=== PATIENT | female | born 1985 | race Caucasian/White ===

== ENCOUNTER 2021-07-26 11:40 | Emergency (ER) | payer SELFPAY ==
[2021-07-26] VITALS (7 sets, daily range): BP systolic 129–203; BP diastolic 86–125; PULSE 77–103; RESP 15–20; TEMP 36.7–36.8; O2SAT 96–100; BMI 62.1
--- NOTE | 2021-07-26 11:53 | XR_ITS ---
WS: [id number] Exam: XR chest 1V portable [id number] Date/Time of Exam: 07/26/2021 11:53 AM Reason For Exam: chest pain Findings: The lungs are clear and fully expanded. Costophrenic angles are sharp. No infiltrates. Bronchovascula r relief appears normal. Cardiac silhouette is unremarkable. Bony elements are intact. XR/XR chest 1V portable [id number] IMPRESSION: Unremarkable chest radiograph.
--- NOTE | 2021-07-26 11:53 | ECG_ITS ---
[facility] Test Date: 2021-07-26 Pat Name: Sammie Amato Department: Room: Gender: Female Coordinator Volunteer Services: : 1985 Requested By: Antwan Amaya Order Number: [id number] Leah MD: Salud Neal M.D. Measurements Intervals [place] Rate: 93 P: 38 SD: 172 QRS: 19 QRSD: 97 T: 19 QT: 340 QTc: 425 Interpretive Statements SINUS RHYTHM No previous ECG available for comparison Electronically Signed On 07-27-2021 7:27:52 CDT by Salud Neal M.D. [id number]
--- NOTE | 2021-07-26 11:55 | ED_ITS ---
HPI - General Adult General: Chief complaint: Chest Pain Stated complaint: chest pain/nausea Time Seen by Provider: 07/26/21 11:52 History of Present Illness: Patient is a 36-year-old female with history of sarcoidosis on methotrexate presenting to the emergency room for concerns of c hest pain and elevated blood pressure. Patient tells me for the last 3 days, she has been taking blood pressure around AC and has noticed that her blood pressure was elevated. Earlier today in triage, patient also noticed that her blood pressure was 203/125. Patient tells me that since 5 AM this morning, she has had intermittent pressure-like chest pain lasting for 10 to 15 minutes at a time. Patient reports that the chest pressure is currently 5 out of 10. Denies any nausea/vomiting fever/chills, pleuritic chest pain, exertional chest pain, leg swelling, OCP use, recent surgery or immobilization. Patient has no family history aortic aneurysm. Patient has no known prior history of elevated blood pressure. Patient tells me that her sarcoidosis is currently being controlled on methotrexate. Onset: 3 days of hypertension, 7 hrs of chest pain Duration:ongoing Location:home Severity:moderate Associated symptoms: Reports chest pain; Deny dyspnea, nausea, rash, palpitations or vomiting Review of Systems Const: Denies: fever(s) or chills Eyes: Denies: change in vision ENMT: Denies: mouth pain Card: Reports: chest pain; Denies: palpitations Resp: Denies: dyspnea or non-productive cough GI: Denies: abdominal pain, nausea, vomiting or diarrhea : Denies: dysuria Musc: Denies: extremity pain Skin/Breast: Denies: rash or new lesions Neuro: Denies: weakness in extremities Psych: Reports: other (Normal mood) Serafin/Lymph: Denies: easy bruising Physical Exam Const: COMMON NORMALS: alert HENMT: COMMON NORMALS: atraumatic HEAD & SCALP: atraumatic MOUTH: moist mucous membranes not abnormal Eye: COMMON NORMALS: EOMs intact bilaterally and conjunctivae normal CONJUNCTIVA: Yes conjunctivae normal Neck/C-Spine: COMMON NORMALS: full ROM and supple Resp: COMMON NORMALS: normal respiratory effort and clear to auscultation bilaterally AUSCULTATION: clear to auscultation bilaterally Cardio: COMMON NORMALS: regular rate RATE: regular rate OTHER: 2+ radial pulses GI: COMMON NORMALS: Soft to palpation and non-tender PALPATION: Yes Soft to palpation Extremity: COMMON NORMALS: full ROM NARRATIVE EXTREMITY EXAM: +nonpitting edema b/l no michelle sign Neuro: SENSORIUM/ORIENTATION: Yes alert MOTOR EXAM: No Abnormal motor strength present and Other motor observations present (no focal motor deficits) Psych: COMMON NORMALS: speech normal SPEECH: Yes normal speech MOOD & AFFECT: Yes euthymic mood Course Vital Signs: Vital signs: Vital Signs Temperature 98.1 F 07/26/21 15:14 Pulse Rate 90 07/26/21 15:14 Respiratory Rate 17 07/26/21 15:14 Blood Pressure 136/86 07/26/21 15:14 Pulse Oximetry 96 07/26/21 15:14 MDM - General Adult Medical Decision Making 36-year-old female with a history of sarcoidosis on methotrexate presenting to the emergency room for elevated blood pressure and chest pain. Patient has been having chest since 5 AM. Currently rates 5 out of 10 chest pain. Patient was n itro or female and aspirin with improvement in chest pain symptoms. EKG is nonischemic and not show any signs of ST elevation LA/TWI/STD. Report x2 within normal limit. Patient received morphine with mild improvement in chest pain. D-dimer within normal limit. Chest not show any focal findings. Doubt ACS/PE or other emergent causes of chest pain. No suspicion for aortic dissection given no widened mediastinum, 2+ upper extremity pulses, or tearing pain. No suspicion for PE given no pleuritic chest pain, recent immobilization or surgery hemoptysis, or other VTE risk factors. EKG is non-ischemic. XR normal. I have given patient follow up with our manager of case management to be seen by our outpati ent Cardiology for evaluation of chest pain in the setting of sarcoidosis. Patient aware of a call from our manager of case management to schedule for appointment(s) and verbalizes understanding of the importance of following up. Patient reassures me that she will followup PCP for elevated BP management outpatient. Patient aware of a call from our manager of case management to schedule for appointment(s) and verbalizes understanding of the importance of following up. Rx tylenol PRN pain, amlodipine for elevated BP Disposition: Discharge. Patient counseled regarding diagnostic impression, treatment plan. Patient given ED strict return precautions to return for continuation, worsening, or development of new symptoms. Instructed to f/u w/ PCP regarding symptoms today. Patient verbalized understanding. Lab Data : 07/26/21 12:00 07/26/21 12:00 Radiology Impressions Chest X-Ray 07/26/21 11:53 IMPRESSION: Unremarkable chest radiograph. Laboratory Results WBC 9.1 10^3/uL (4.0-10.0) 07/26/21 12:00 RBC 3.96 10^6/uL (4.1-5.3) L 07/26/21 12:00 Hgb 13.6 g/dL (11.5-15.3) 07/26/21 12:00 Hct 41.4 % (37.0-47.0) 07/26/21 12:00 MCV 104.5 fl (81-99) H 07/26/21 12:00 MCH 34.3 pg (28.0-34.0) H 07/26/21 12:00 MCHC 32.9 g/dL (30.0-36.0) 07/26/21 12:00 RDW 13.8 % (12.1-15.1) 07/26/21 12:00 Plt Count 261 10^3/cmm (130-400) 07/26/21 12:00 MPV 10.1 fL (7.4-10.4) 07/26/21 12:00 Neut % (Auto) 73.2 % 07/26/21 12:00 Lymph % (Auto) 10.7 % 07/26/21 12:00 [place] % (Auto) 8.1 % 07/26/21 12:00 Eos % (Auto) 6.8 % 07/26/21 12:00 Baso % (Auto) 0.8 % 07/26/21 12:00 Neut # (Auto) 6.68 10^3/uL (1.8-7.7) 07/26/21 12:00 Lymph # (Auto) 1.0 10^3/uL (0.8-4.8) 07/26/21 12:00 [place] # (Auto) 0.7 10^3/uL (0.2-0.9) 07/26/21 12:00 Eos # (Auto) 0.6 10^3/uL (0.0-0.8) 07/26/21 12:00 Baso # (Auto) 0.1 10^3/uL (0.0-0.1) 07/26/21 12:00 Nucleated RBC % (auto) 0 % 07/26/21 12:00 Nucleated RBCs # 0.0 /100WBC 07/26/21 12:00 D-Dimer 0.32 ug/mIFEU (0-0.59) 07/26/21 12:35 Sodium 137 mmol/L (136-145) 07/26/21 12:00 Potassium 4.1 mmol/L (3.5-5.1) 07/26/21 12:00 Chloride 99 mmol/L (98-107) 07/26/21 12:00 Carbon Dioxide 28 mmol/L (22-29) 07/26/21 12:00 Anion Gap 14.1 (5-19) 07/26/21 12:00 BUN 10 mg/dL (6-20) 07/26/21 12:00 Creatinine 0.5 mg/dL (0.5-0.9) 07/26/21 12:00 GFR Calculation 141.2 mL/min (90-130) H 07/26/21 12:00 Glucose 106 mg/dL (65-115) 07/26/21 12:00 Calculated Osmolality 283 mOsm/kg (285-295) L 07/26/21 12:00 Calcium 9.5 mg/dL (8.5-10.5) 07/26/21 12:00 Troponin T Baseline 6 ng/L (0-10) 07/26/21 12:00 Troponin T 120 Minute 6.00 ng/L (0-10) 07/26/21 14:10 Delta Troponin T 0 ABS# (0-10) 07/26/21 14:10 Imaging Data Other Imaging: Radiologist's impression: [address] [address] XRay Report Signed Patient: Sammie Amato Unit #: [id number] : 1985 Age/Sex: 36 / F ADM Date: 07/26/21 Loc: ER Room/Bed: Attending Dr: Ordering Provider/Ordering MD: Antwan Amaya MD Date of Service: 07/26/21 Procedure(s): XR chest 1V portable [id number] Accession Number(s): [id number] Report Number: [id number] WS: [id number] Exam: XR chest 1V portable [id number] Date/Time of Exam: 07/26/2021 11:53 AM Reason For Exam: chest pain Findings: The lungs are clear and fully expanded. Costophrenic angles are sharp. No infiltrates. Bronchovascular relief appears normal. Cardiac silhouette is unremarkable. Bony elements are intact. ? XR/XR chest 1V portable [id number] IMPRESSION: Unremarkable chest radiograph. ? ? Dictated By: Mikey Reyes DO Signed By: Mikey Reyes DO Signed Date/Time: 07/26/21 1226 DD/ 1225 Discharge Plan Discharge Patient Disposition: Home Clinical Impression: Hypertension, Chest pain Condition: Stable Prescriptions: New acetaminophen 500 mg tablet 500 mg PO Q6H PRN (Reason: pain) 5 Days Qty: 20 0RF amlodipine 5 mg tablet 5 mg PO DAILY 20 Days Qty: 20 0RF No Action ondansetron HCl 4 mg tablet 4 mg PO DAILY PRN (Reason: Nausea) 0RF methotrexate sodium 2.5 mg tablet 20 mg PO Q7D 0RF gabapentin 300 mg capsule 300 mg PO DAILY 0RF montelukast 10 mg tablet 10 mg PO BEDTIME 0RF Claritin 10 mg Tablet 10 mg PO DAILY PRN (Reason: Allergy Symptoms) 0RF Discharge Orders: Discharge ED (Routine); Ordered 07/26/21 Ordered By: Antwan Amaya Referrals: Alonzo Roland [Primary Care Provider] - Discharge Diet: Advance as tolerated Discharge Activity: Increase activity as tolerated Patient Instructions: Chest Pain (ED), Hypertension (ED) Activity Restrictions/Additional Instructions: You need to follow-up with your primary care provider for further adjustment of your blood pressure. Your blood pressure puts you at risk for developing strokes and heart attack. Therefore it is very important for you to follow-up w ith this number to see if the numbers improve gradually. Because blood pressure adjustment is a gradual process, were not able to change it in 1 visit. Therefore please log your blood pressure and follow-up with your primary care provider in the next 72 hours for further adjustment of your blood pressures. Come back to the emergency room if your chest pain worsens, have any fever or chills, worsening shortness of breath, worsening exertional lightheadedness, or any new or concerning complaints. Coding Level of Care Code ED [employer] Supervisor for Chg Fwd Exam Comprehensive
[2021-07-26] MEDS: amlodipine 5 mg Tablet PO (12:12)
[2021-07-26 12:15] LABS: Basophils # 0.1 10^3/uL (0.0-0.1); Basophils % 0.8 %; Eosinophils # 0.6 10^3/uL (0.0-0.8); Eosinophils % 6.8 %; Hematocrit 41.4 % (37.0-47.0); Hemoglobin 13.6 g/dL (11.5-15.3); Lymphocytes % 10.7 %; Mean Corpuscular HGB Conc 32.9 g/dL (30.0-36.0); Mean Corpuscular Hemoglobin 34.3 pg (28.0-34.0); Mean Corpuscular Volume 104.5 fl (81-99); Mean Platelet Volume 10.1 fL (7.4-10.4); Monocytes # 0.7 10^3/uL (0.2-0.9); Monocytes % 8.1 %; Neutrophils # 6.68 10^3/uL (1.8-7.7); Neutrophils % 73.2 %; Nucleated Red Blood Cells % 0 %; Platelet Count 261 10^3/cmm (130-400); Red Blood Count 3.96 10^6/uL (4.1-5.3); Red Cell Distribution Width 13.8 % (12.1-15.1); White Blood Count 9.1 10^3/uL (4.0-10.0)
[2021-07-26] MEDS: morphine 4 mg/mL SDV 1 mL IVP (12:25)
[2021-07-26] MEDS: aspirin 325 mg Tablet PO (12:25)
[2021-07-26 12:33] LABS: Troponin(5th) Baseline 6 ng/L (0-10)
[2021-07-26 12:34] LABS: Anion Gap 14.1 (5-19); Blood Urea Nitrogen 10 mg/dL (6-20); Calcium 9.5 mg/dL (8.5-10.5); Carbon Dioxide 28 mmol/L (22-29); Chloride 99 mmol/L (98-107); Glomerular Filtration Rate 141.2 mL/min (90-130); Glucose 106 mg/dL (65-115); Osmolality Calculated 283 mOsm/kg (285-295); Potassium 4.1 mmol/L (3.5-5.1); Sodium 137 mmol/L (136-145)
[2021-07-26 13:07] LABS: D Dimer 0.32 ug/mIFEU (0-0.59)
--- NOTE | 2021-07-26 14:04 | ECG_ITS ---
[facility] Test Date: 2021-07-26 Pat Name: Sammie Amato Department: Room: Gender: Female Linux Administrator: : 1985 Requested By: Antwan Amaya Order Number: [id number] Leah MD: Salud Neal M.D. Measurements Intervals [place] Rate: 77 P: 43 CT: 190 QRS: 22 QRSD: 101 T: 22 QT: 379 QTc: 431 Interpretive Statements SINUS RHYTHM Compared to ECG 07/26/2021 11:50:56 No significant changes Electronically Signed On 07-27-2021 7:33:12 CDT by Salud Neal M.D. [id number]
[2021-07-26 15:15] LABS: Troponin 5 2HR Delta 0 ABS# (0-10)
--- NOTE | 2021-07-27 12:26 | DCPLANNER ---
Addendum entered by Lara Sharma 09/26/21 06:18: appointment was cancelled Addendum entered by Lara Sharma 07/28/21 14:18: Patient has a follow up appointment scheduled for Tuesday, September 21, 2021 at 1:[address] [facility] at [facility]. marketing production manager called patient and gave patient the appointment information. Original Note: marketing production manager had a message to schedule a follow up appointment for patient with [facility]. marketing production manager sent patients information to the front office staff at [facility]. Patients information will be printed and reviewed. Clinic will notify family independence case manager of the scheduled appointment. marketing production manager will call patient with appointment information.
== END 2021-07-26 15:10 | disposition home or self-care (01) ==
PROVIDERS: Emergency Provider Emergency Medicine; PCP Nurse Practitioner Family
DX: R07.9 Chest pain, unspecified (principal); I10 Essential (primary) hypertension; D86.9 Sarcoidosis, unspecified
CPT/HCPCS: 71045; 80048; 84484; 85025; 85378; 93005; 96374; 99284; J2270